=== PATIENT | male | born 1970 | race Asian ===

== ENCOUNTER 2019-01-25 10:36 | Emergency (ER) | payer OTHER ==
[~2019-01-25] VITALS: Ht 170.2 cm; Wt 72.0 kg
[~2019-01-25 10:36] MED LIST: NAPROSYN500 MG PO; ZOFRAN ODT4 MG PO
[2019-01-25] MEDS ORDERED: MEDDOSEPAK PO (11:42)
[2019-01-25] MEDS ORDERED: FLEXERIL PO (11:42)
[2019-01-25 11:47] VITALS: BP 166/74
== END 2019-01-25 11:47 | disposition home or self-care (01) | DRG 552 ==
LOC: ED 10:36
DX: M54.5 Low back pain (principal); M62.830 Muscle spasm of back; X50.0XXA Overexertion from strenuous movement or load, initial encounter; X50.3XXA Overexertion from repetitive movements, initial encounter; Y92.73 Farm field as the place of occurrence of the external cause; Y99.0 Civilian activity done for income or pay

== ENCOUNTER 2022-02-20 08:40 | Emergency (ER) | payer SELFPAY ==
[~2022-02-20] VITALS: Ht 170.2 cm; Wt 75.0 kg
[2022-02-20] VITALS (22 sets, daily range): BP systolic 146–194; BP diastolic 88–121
[~2022-02-20 08:40] MED LIST changes: +FLEXERIL PO; +MEDDOSEPAK PO
[2022-02-20] MEDS ORDERED: ASPIRIN81 MG PO (08:58)
[2022-02-20] MEDS ORDERED: NORVASC5 M1 PO (09:03)
[2022-02-20] MEDS ORDERED: LISINOPRIL10 MG PO (09:04)
[2022-02-20 09:09] LABS: BASO% 0.3 % (0-3); EOS% 2.5 % (0-8); HEMATOCRIT 49.7 % (39.0-50.0); HEMOGLOBIN 16.4 g/dl (14.0-18.0); IMMATURE GRANULOCYTES 0.1 % (0.0-5.0); LYMPH% 27.3 % (15-41); MEAN CELL VOLUME 85.1 fL CALC (80.0-100.0); MEAN CORPUSCULAR HGB 28.1 pG CALC (26.0-32.0); MONO% 6.4 % (2-13); NEUT# 5.48 thou/uL (1.82-7.42); NEUT% 63.4 % (42-76); RED BLOOD COUNT 5.84 mill/uL (4.70-6.10)
[2022-02-20 09:20] LABS: ALKALINE PHOSPHATASE 85 u/l (38-126); ANION GAP 9 (6-22 (CALC)); BILIRUBIN, TOTAL 1.4 mg/dL (0.0-1.4); BUN 17 mg/dL (9-20); BUN/CREATININE RATIO 13 (12-20 (CALC)); CARBON DIOXIDE 26 mmol/l (22-30); CHLORIDE 104 mmol/l (95-108); CREATININE 1.3 mg/dL (0.7-1.3); GFR FOR AFR.AMER. > 60 ML/MIN (>=60 (CALC)); GFR OTHER RACES 58 ML/MIN (>=60 (CALC)); POTASSIUM 3.9 mmol/l (3.5-5.1); SGOT/AST 36 u/l (17-59); SODIUM 136 mmol/l (137-146); TOTAL PROTEIN 6.5 g/dL (6.3-8.2)
[2022-02-20 09:27] LABS: ALBUMIN 3.7 g/dL (3.2-5.0)
[2022-02-20] MEDS ORDERED: HYDROCHLOROTH12.5 M1 PO (09:55)
== END 2022-02-21 12:21 | disposition home or self-care (01) | DRG 305 ==
LOC: ED 08:40
PROVIDERS: Emergency Medicine
DX: I16.0 Hypertensive urgency (principal); F17.200 Nicotine dependence, unspecified, uncomplicated

== ENCOUNTER 2022-03-05 04:57 | Emergency (ER) | payer SELFPAY ==
[~2022-03-05] VITALS: Ht 170.2 cm; Wt 80.0 kg
[~2022-03-05 04:57] MED LIST changes: +ASPIRIN81 MG PO; +HYDROCHLOROTH12.5 M1 PO; +LISINOPRIL10 MG PO; +NORVASC5 M1 PO
[2022-03-05 05:05] VITALS: BP 155/93
[2022-03-05 05:15] VITALS: BP 135/84
[2022-03-05 05:30] VITALS: BP 136/83
[2022-03-05 05:45] VITALS: BP 137/85
[2022-03-05] MEDS ORDERED: LISINOPRIL20 M1 PO (05:56)
[2022-03-05 06:00] VITALS: BP 138/88
[2022-03-05 06:10] VITALS: BP 138/88
== END 2022-03-05 06:18 | disposition home or self-care (01) | DRG 305 ==
LOC: ED 04:57
DX: I10 Essential (primary) hypertension (principal)

== ENCOUNTER 2022-03-07 13:48 | Emergency (ER) | payer SELFPAY ==
[~2022-03-07] VITALS: Ht 170.2 cm; Wt 78.0 kg
[~2022-03-07 13:48] MED LIST changes: +LISINOPRIL20 M1 PO
[2022-03-07 14:57] VITALS: BP 134/74
[2022-03-07 15:01] VITALS: BP 122/77
[2022-03-07 15:16] VITALS: BP 132/76
[2022-03-07 15:30] VITALS: BP 119/79
[2022-03-07] MEDS ORDERED: HYDROCHLOROT12.5 M1 PO (15:33)
[2022-03-07] MEDS ORDERED: AMLODIPINE BESY10 MG PO (15:33)
[2022-03-07] MEDS ORDERED: LISINOPRIL20 M1 PO (15:34)
[2022-03-07 15:45] VITALS: BP 117/76
[2022-03-07 16:00] VITALS: BP 121/73
== END 2022-03-07 16:10 | disposition home or self-care (01) | DRG 305 ==
LOC: ED 13:48
DX: I10 Essential (primary) hypertension (principal)

== ENCOUNTER 2022-04-11 03:25 | Emergency (ER) | payer OTHER ==
[2022-04-11] VITALS (9 sets, daily range): BP systolic 132–160; BP diastolic 84–96
[~2022-04-11] VITALS: Ht 170.2 cm; Wt 80.0 kg
[~2022-04-11 03:25] MED LIST changes: +AMLODIPINE BESY10 MG PO; +HYDROCHLOROT12.5 M1 PO
[2022-04-11 04:02] LABS: BASO% 0.3 % (0-3); EOS% 4.7 % (0-8); IMMATURE GRANULOCYTES 0.2 % (0.0-5.0); MEAN CELL VOLUME 82.9 fL CALC (80.0-100.0); MEAN CORPUSCULAR HGB 26.9 pG CALC (26.0-32.0); MEAN CORPUSCULAR HGB CONC 32.4 g/dL CAL (32.0-36.0); MONO% 11.5 % (2-13); NEUT# 5.66 thou/uL (1.82-7.42); NEUT% 55.3 % (42-76); RED BLOOD COUNT 4.91 mill/uL (4.70-6.10); RED CELL DISTRI WIDTH 12.1 % (11.5-15.5)
[2022-04-11 04:04] LABS: HEMATOCRIT 40.7 % (39.0-50.0); HEMOGLOBIN 13.2 g/dl (14.0-18.0)
[2022-04-11 04:12] LABS: ALKALINE PHOSPHATASE 67 u/l (38-126); ANION GAP 10 (6-22 (CALC)); BUN 22 mg/dL (9-20); BUN/CREATININE RATIO 21 (12-20 (CALC)); CARBON DIOXIDE 24 mmol/l (22-30); CHLORIDE 105 mmol/l (95-108); CREATININE 1.1 mg/dL (0.7-1.3); GFR FOR AFR.AMER. > 60 ML/MIN (>=60 (CALC)); GFR OTHER RACES > 60 ML/MIN (>=60 (CALC)); POTASSIUM 4.2 mmol/l (3.5-5.1); SGOT/AST 27 u/l (17-59); SODIUM 135 mmol/l (137-146); TOTAL PROTEIN 7.2 g/dL (6.3-8.2)
[2022-04-11 04:13] LABS: BILIRUBIN, TOTAL 0.3 mg/dL (0.2-1.3)
[2022-04-11] MEDS ORDERED: HYDROCHLOROT25 MG PO (05:42)
[2022-04-11] MEDS ORDERED: LISINOPRIL20 M1 PO (05:42)
[2022-04-11] MEDS ORDERED: AMLODIPINE BESY10 MG PO (05:42)
== END 2022-04-11 05:51 | disposition home or self-care (01) | DRG 305 ==
LOC: ED 03:25
PROVIDERS: Family Medicine
DX: I10 Essential (primary) hypertension (principal); F17.210 Nicotine dependence, cigarettes, uncomplicated